=== PATIENT | female | born 1945 | race Caucasian/White ===

== ENCOUNTER → 2017-01-12 | Outpatient (CLI) | payer MEDICARE, OTHER ==
--- NOTE | 2017-01-12 11:30 | ECHOS ---
DATE OF SERVICE: 01/12/2017 AGE: 71Y SEX: F HT: 60 WT: 108lbs. Protocol Lanre: Others: Stage: 2 Dur. of Exercise: 5:00 *Heart Rate Blood Pressure *Rest: 89 Rest: 101/43 * *Max. Achieved: 133 Maximum BP: 164/71 85% PMHR: 128 100% PMHR: 150 *METS: 6.7 INDICATIONS: Chest pain. MEDICATIONS: STRESS DATA: Pretesting physical examination showed heart rate of 89, pressure is 101/43 mmHg. Baseline EKG showed sinus rhythm. The patient exercised on treadmill according to Lanre protocol for a total of 5 minutes and achieved 6.7 METs. Max heart rate was 132, which is about 88% of the proximal predicted heart rate. Maximum blood pressure was 164/71 mmHg. Clinically, the patient did not have any symptoms. The EKG showed about [address] segment depression in the inferolateral leads likely represents a worsening baseline EKG changes. ECHOCARDIOGRAM IMAGES: Echocardiogram images from parasternal long axis, short axis, apical 4 chambers and apical 2 chamber were obtained as the baseline images, at the peak of the heart rate, as well as on recovery and the echocardiogram images showed no wall motion abnormalities consistent with ischemia. CONCLUSION: 1. Average exercise capacity. 2. Mild EKG changes in response to exercise likely represents the worsening of the baseline EKG changes in which the patient has baseline left bundle branch block. 3. Normal echocardiogram in response to exercise without any obvious wall abnormalities consistent with ischemia.
--- NOTE | 2017-01-20 15:28 | ECHOF ---
Referral Reason:I10 htn MEASUREMENTS -------- HEIGHT: 152.4 cm WEIGHT: 49.0 kg BP: IVSd: 0.9 cm (0.6 - 1.1) LVIDd: 3.6 cm (3.9 - 5.3) LVPWd: 1.0 cm (0.6 - 1.1) IVSs: 1.1 cm LVIDs: 2.8 cm LVPWs: 1.3 cm LA Diam: 2.2 cm (2.7 - 3.8) LAESV Index (A-L): 14.47 ml/m Ao Diam: 3.1 cm (2.0 - 3.7) AV Cusp: 1.5 cm (1.5 - 2.6) LA Diam: 2.7 cm (2.7 - 3.8) MV EXCURSION: 14.946 mm (> 18.000) MV EF SLOPE: 90 mm/s (70 - 150) EPSS: 1.0 cm MV E Ramos: 0.76 m/s MV DecT: 274 ms MV A Ramos: 0.97 m/s MV E/A Ratio: 0.78 RAP: 5.00 mmHg RVSP: 32.48 mmHg FINDINGS -------- Undetermined rhythm. This was a technically adequate study. Left ventricular wall thickness is normal. Overall left ventricular systolic function is mildly impaired with, an EF between 45 - 50 %. Anterseptal Hypokinesis The right ventricle is normal in size. The left atrial size is normal. The right atrial size is normal. There is no evidence of aortic regurgitation. Mild mitral annular calcification present. Mild mitral regurgitation is present. Mild tricuspid regurgitation present. There is no evidence of pulmonary hypertension. The right ventricular systolic pressure, as measured by Doppler, is 32.48mmHg. Trace/mild (physiologic) pulmonic regurgitation. The aortic root size is normal. There is no pericardial effusion. CONCLUSIONS -------- 1. Left ventricular wall thickness is normal. 2. Overall left ventricular systolic function is mildly impaired with, an EF between 45 - 50 %. 3. Anterseptal Hypokinesis 4. Mild mitral annular calcification present. 5. Mild mitral regurgitation is present. 6. Mild tricuspid regurgitation present. 7. There is no evidence of pulmonary hypertension. 8. The right ventricular systolic pressure, as measured by Doppler, is 32.48mmHg. 9. Trace/mild (physiologic) pulmonic regurgitation. DAIRY FEED MIXING OPERATOR: Janneth Combs RDCS
== END | disposition home or self-care (01) ==
LOC: RADNMMAIN 09:51
PROVIDERS: ATTEND Internal Medicine Interventional Cardiology
DX: Z01.810 Encounter for preprocedural cardiovascular examination (principal); I10 Essential (primary) hypertension
CPT/HCPCS: 93017; 93306; 93350

== ENCOUNTER → 2018-07-06 | Outpatient (CLI) | payer MEDICARE, OTHER | END | disposition home or self-care (01) | LOC: LABWHC1 09:16 | PROVIDERS: ATTEND Nurse Practitioner Adult Health | DX: I65.22 Occlusion and stenosis of left carotid artery (principal) | CPT/HCPCS: 36415; 82565; 84520 ==

== ENCOUNTER → 2018-07-11 | Outpatient (CLI) | payer MEDICARE, OTHER ==
--- NOTE | 2018-07-12 08:38 | CT ---
EXAMINATION TYPE: CT angio neck DATE OF EXAM: 07/11/2018 HISTORY: Abnormal doppler. Left-sided carotid stenosis. COMPARISON: NONE CT DLP: 310 mGycm. Automated Exposure Control for Dose Reduction was Utilized. TECHNIQUE: CTA scan of the neck is performed with IV Contrast, patient injected with 65 mL of Isovue 370, axial images are obtained, coronal and sagittal reformatted images are reviewed. Three-D recons tructed images are created on an independent workstation and reviewed. FINDINGS: Carotid/Vascular Structures: Mild to moderate mixed plaque in the aortic arch is identified. There is normal 3 vessel origin from the aortic arch. Bilateral subclavian arteries show mild calcified plaqu e on the right. No significant stenosis is present bilaterally. The right common carotid artery shows normal origin from the right brachiocephalic artery. Mild peripheral plaque is seen in the right bra chiocephalic artery. There is fairly severe calcified plaque in right carotid bulb extending into pro ximal internal carotid artery. Lumen diameter is narrowed to 2.1 mm and reexpands to 4.5 mm. Diameter narrowing calculated at 54% near raw data image 268. There is slight bilobed configuration and area of narrowing is under 50%. Remainder of internal carotid artery shows mild calcified plaque supraclin oid segment without significant stenosis. There is patent external carotid artery without significant plaque or stenosis. There is mild to minimal calcified plaque in the proximal left common carotid artery. There is more p rominent focal calcified plaque in the proximal left internal carotid artery shortly after its origin . Lumen diameter is narrowed to 1.3 mm near raw data images 264 through 270 and reconstitutes up to 3 .6 mm superior to this. Computer calculates diameter narrowing 63% and 56% area narrowing. Remainder of internal carotid artery shows tortuous course with mild calcified plaque supraclinoid segment. No significant stenosis is present. There is patent left external carotid artery without significant jany que or stenosis. There is codominant vertebrobasilar system. Vertebral arteries are patent to basilar junction.121 Other: There is moderate to severe disc space narrowing with moderate spurring C6-C7 level. There is mild to moderate disc space narrowing with moderate spurring C5-C6 level. There is underlying emphysematous change with moderate to severe biapical pleural/parenchymal scarrin g. IMPRESSION: Atherosclerotic change bilaterally worse on the left with stenosis narrowed to 63% diamet er and 56% area on computer analysis. No greater than 70% narrowing identified.
== END | disposition home or self-care (01) ==
LOC: RADCTMAIN 16:44
PROVIDERS: ATTEND Internal Medicine Interventional Cardiology
DX: I65.22 Occlusion and stenosis of left carotid artery (principal)
CPT/HCPCS: 70498; Q9967

== ENCOUNTER → 2018-09-19 | Outpatient (CLI) | payer MEDICARE, OTHER ==
--- NOTE | 2018-09-19 08:49 | CT ---
EXAMINATION TYPE: CT chest wo con DATE OF EXAM: 09/19/2018 COMPARISON: NONE HISTORY: Hx open heart. Pt c/o SOB, fatigue. Pleural thickening. CT DLP: 319 mGycm. Automated Exposure Control for Dose Reduction was Utilized. TECHNIQUE: CT scan of the thorax is performed without IV contrast. FINDINGS: LUNGS: There are severe emphysematous changes throughout the lungs predominating at the lung apices. Biapical pleural-parenchymal thickening is also noted as seen on the CT angiogram dated 07/11/2018. Ad ditionally there is a 2 mm focus of pleural thickening along the interlobar fissure on image 34. Ther e is no focal consolidation, pneumothorax or pleural effusion. Right middle lobe strand-like atelecta sis is seen. No pulmonary sizable pulmonary nodule or mass is appreciated. MEDIASTINUM: Lack of IV contrast is noted to limit evaluation for mediastinal and especially hilar ad enopathy. There are no definitive greater than 1 cm hilar or mediastinal lymph nodes. There are multi ple prominent lymph nodes in the mediastinum is seen and coronal image 37 measuring up to 9 mm and on coronal image 39 measuring up to 1.0 cm. No axillary adenopathy. Evaluation for hilar adenopathy is limited without contrast. Ascending thoracic aorta is within normal limits measuring 3.3 cm. Post CAB G changes are noted. No cardiomegaly or pericardial effusion. OTHER: There is tortuosity of the descending thoracic aorta. On the most inferior image (67) there is severe atherosclerosis and questionable intimal flap that could relate to chronic dissection. Altern atively this could represent volume averaging. IMPRESSION: 1. Severe emphysematous change with biapical pleural-parenchymal thickening. No suspicious pulmonary mass. 2. Mediastinal lymph nodes are upper limits of normal in size, possibly reactive. 3. Severe atherosclerosis and tortuosity of the descending thoracic aorta is seen with possible intim al flap of chronic dissection versus volume averaging from the severe atherosclerosis one slice above . CT abdomen with contrast could further assess this questionable finding.
== END | disposition home or self-care (01) ==
LOC: RADCTMAIN 07:27
PROVIDERS: ATTEND Family Medicine
DX: J92.9 Pleural plaque without asbestos (principal); J43.9 Emphysema, unspecified; I70.0 Atherosclerosis of aorta; Z87.891 Personal history of nicotine dependence
CPT/HCPCS: 71250

== ENCOUNTER → 2018-10-04 | Outpatient (CLI) | payer MEDICARE, OTHER ==
--- NOTE | 2018-10-04 08:56 | CT ---
EXAMINATION TYPE: CT angio abdomen DATE OF EXAM: 10/04/2018 HISTORY: Prior abnormal CAT scan, possible dissection. CT DLP: 942mGycm Automated Exposure Control for Dose Reduction was Utilized. CONTRAST: CTA scan of the abdomen and pelvis is performed without oral and without and with IV Contrast, patien t injected with 100 mL of Isovue 370. Three-D reconstructed images are created on independent worksta tion COMPARISON: CT chest September 19, 2018 FINDINGS: VASCULAR: There is fairly moderate to severe eccentric calcified plaque in the infrarenal abdominal a koby extending into the iliac arterial branch vessels in the pelvis. Corresponding to area of CT conc eric is focal ectasia of the infrarenal abdominal aorta which measures up to 1.8 cm transversely axial image 33. No linear hypodensity persists above 1 axial image to suggest clinically significant disse ction. No significant stenosis is seen in aorta or common iliac arteries bilaterally. Significant anaya nosis is felt present in the right internal iliac artery. Severely calcified plaque bilateral externa l iliac arteries is present, cannot exclude stenosis greater than 50% in either artery. No aneurysm i s evident. LUNG BASES: Right medial basilar scarring and/or atelectasis is redemonstrated. Surgical clip anterio r to pericardium is noted. LIVER/GB: No significant abnormality is appreciated. PANCREAS: No significant abnormality is seen. SPLEEN: No significant abnormality is seen. ADRENALS: No significant abnormality is seen. KIDNEYS: No significant abnormality is seen. BOWEL: No significant abnormality is seen. UTERUS/ADNEXA: No gross abnormality seen. LYMPH NODES: No greater than 1cm abdominal or pelvic lymph nodes are appreciated. OSSEOUS STRUCTURES: There is dextroconvex scoliosis centered in the upper lumbar spine. There is mult ilevel spurring and disc space narrowing throughout the lumbar spine. Moderate degenerative change ri ght hip joint with narrowing and spurring is present. OTHER: No significant additional abnormality is seen. IMPRESSION: No focal dissection or aneurysm. Fairly severe diffuse calcified plaque infrarenal abdomi nal aorta extending into iliac arterial branch vessels is noted.
== END | disposition home or self-care (01) ==
LOC: RADCTMAIN 06:56
PROVIDERS: ATTEND Family Medicine
DX: I70.0 Atherosclerosis of aorta (principal); I70.8 Atherosclerosis of other arteries
CPT/HCPCS: 82565; 84520; 74175; 36415; Q9967

== ENCOUNTER → 2018-12-06 | Outpatient (CLI) | payer MEDICARE, OTHER ==
--- NOTE | 2018-12-13 16:50 | MM ---
Reason for exam: screening (asymptomatic). History: Patient is postmenopausal. MG 3D Screening Mammo W/Cad Bilateral CC and MLO view(s) were taken. No prior studies available for comparison. The breast tissue is extremely dense which could obscure a lesion on mammography. There is an obscured left lower inner quadrant anterior depth mass, seen on 3D cc 2050. There are benign-appearing bilateral calcifications. ASSESSMENT: Incomplete: need additional imaging evaluation, BI-RAD 0 RECOMMENDATION: Special view mammogram of the left breast.
== END | disposition home or self-care (01) ==
LOC: RADMAMWWP 07:16
PROVIDERS: ATTEND Family Medicine
DX: Z12.31 Encounter for screening mammogram for malignant neoplasm of breast (principal)
CPT/HCPCS: 77063; 77067

== ENCOUNTER → 2018-12-15 | Outpatient (CLI) | payer MEDICARE, OTHER ==
--- NOTE | 2018-12-19 17:22 | MM ---
Reason for exam: additional evaluation requested from abnormal screening. Last mammogram was performed less than 1 month ago. History: Patient is postmenopausal. Physical Findings: Nurse did not find any significant physical abnormalities on exam. MG 3D Work Up W/Cad LT Spot compression CC, spot compression MLO, and ML view(s) were taken of the left breast. Prior study comparison: December 06, 2018, bilateral MG 3d screening mammo w/cad. The breast tissue is heterogeneously dense. This may lower the sensitivity of mammography. The previously seen left breast focal asymmetry appears improved on additional views and as fibroglandular tissue. These results were verbally communicated with the patient and result sheet given to the patient on 12/15/18. ASSESSMENT: Negative, BI-RAD 1 RECOMMENDATION: Return to routine screening mammogram schedule for both breasts.
== END | disposition home or self-care (01) ==
LOC: RADMAMWWP 08:54
PROVIDERS: ATTEND Family Medicine
DX: R92.8 Other abnormal and inconclusive findings on diagnostic imaging of breast (principal)
CPT/HCPCS: 77065; G0279; 77061

== ENCOUNTER → 2019-07-21 | Outpatient (CLI) | payer MEDICARE, OTHER ==
--- NOTE | 2019-07-21 09:00 | XR ---
EXAMINATION TYPE: XR cervical spine comp DATE OF EXAM: 07/21/2019 CLINICAL HISTORY: pain COMPARISON: NONE TECHNIQUE: Frontal, lateral, oblique, swimmers, and open mouth view of the cervical spine are obtaine d. FINDINGS: The cervical spine is visualized in its entirety from C1 thru the top of T1 level. It is s atisfactory in alignment without evidence of acute fracture or dislocation. The pre-vertebral soft t issue appears within normal limits. Moderate to severe degenerative disc space narrowing and spondylo sis extending from C5-6 through C6-7. Bilateral foraminal encroachment at C5-6 and C6-7. The C1-C2 ar ticulation is unremarkable on the open mouth view. IMPRESSION: No acute fracture or dislocation is seen in the cervical spine.ICD 10 NO FRACTURE, INITI AL EVALUATION
== END | disposition home or self-care (01) ==
LOC: RADXRMAIN 07:58
PROVIDERS: ATTEND Family Medicine
DX: M54.2 Cervicalgia (principal)
CPT/HCPCS: 72050

== ENCOUNTER → 2019-08-21 | Outpatient (CLI) | payer MEDICARE, OTHER ==
--- NOTE | 2019-08-21 08:09 | MR ---
MRI CERVICAL SPINE: CLINICAL HISTORY: Neck pain per order. Headache with neck pain for one year increasing in severity re cently per patient. TECHNIQUE: Multiplanar, multisequence imaging of the cervical spine is performed without IV contrast. COMPARISON: Cervical spine x-ray July 21, 2019. FINDINGS: Sagittal images of the cervical spine show the craniocervical junction to appear within nor mal limits. The cervical and upper thoracic spinal cord is normal in course, caliber, and signal. V ertebral alignment is anatomic. The vertebral body heights are normal. Mild disc space narrowing wit h moderate anterior spurring C6-C7 level. Moderate anterior spurring C5-C6 level noted. The bone david ow signal intensity is within normal limits. Axial images show C2-C3 level to appear within normal limits. Axial images at C3-C4 level from uncovertebral facet degenerative changes bilaterally causing mild-to -moderate bilateral neural foraminal narrowing. Axial images at C4-C5 level are all within normal limits. Axial images at C5-C6 level showed broad based posterior disc protrusion effacing the anterior thecal sac, bilateral neural foramina are patent. Axial images at C6-C7 level a broad-based posterior disc protrusion effacing anterior thecal sac and causing moderate to severe right and moderate left-sided neural foraminal narrowing. Axial images at C7-T1 level are within normal limits. IMPRESSION: Multilevel degenerative changes in cervical spine most prominent at C6-C7 level as detail ed above.
== END | disposition home or self-care (01) ==
LOC: RADMRIMAIN 06:10
PROVIDERS: ATTEND Psychiatry & Neurology Neurology
DX: M47.812 Spondylosis without myelopathy or radiculopathy, cervical region (principal)
CPT/HCPCS: 72141

== ENCOUNTER → 2019-12-27 | Outpatient (CLI) | payer MEDICARE, OTHER ==
--- NOTE | 2019-12-27 10:17 | CT ---
EXAMINATION TYPE: CT angio neck DATE OF EXAM: 12/27/2019 COMPARISON: 07/11/2018 HISTORY: 74-year-old female Carotid Stenosis TECHNIQUE: Contiguous axial scanning of the neck performed with IV Contrast, patient injected with 10 0 mL of Isovue 370. Coronal/sagittal MIP reconstructions performed. 3-D reconstructions generated on a dedicated independent workstation. CT DLP: 156.2 mGycm Automated exposure control for dose reduction was used. FINDINGS: Moderate to advanced emphysema in the visualized upper lungs with biapical pleural-parenchymal scarri ng. Moderate atherosclerotic changes in the aortic arch with bovine configuration. Arch vessel origins ar e patent with scattered mild atherosclerotic calcifications. The bilateral vertebral artery are patent and codominant. Incidental low takeoff of the right posteri or inferior cerebellar artery just proximal to the V4 segment. The right common carotid artery is patent. Moderate chronic changes at the right bifurcation with mild, less than 40 % proximal ICA narrowing. T he remainder of the right ICA is patent. Left common carotid artery is patent. There is severe, very short segment focal stenosis of the proxi mal left carotid bulb of approximately 80%. The remainder of the left ICA is patent. IMPRESSION: 1. SEVERE, VERY SHORT SEGMENT FOCAL STENOSIS OF APPROXIMATELY 80% AT THE PROXIMAL LEFT CAROTID BULB. 2. MILD, LESS THAN 40 % PROXIMAL ICA STENOSIS ON THE RIGHT. 3. COPD.
== END | disposition home or self-care (01) ==
LOC: RADCTMAIN 06:24
PROVIDERS: ATTEND Nurse Practitioner Adult Health
DX: I65.23 Occlusion and stenosis of bilateral carotid arteries (principal); J44.9 Chronic obstructive pulmonary disease, unspecified; I65.29 Occlusion and stenosis of unspecified carotid artery
CPT/HCPCS: 82565; 84520; 70498; 36415; Q9967

== ENCOUNTER → 2020-01-17 | Outpatient (CLI) | payer MEDICARE, OTHER ==
--- NOTE | 2020-01-17 09:39 | BD ---
EXAMINATION TYPE: Axial Bone Density DATE OF EXAM: 01/17/2020 COMPARISON: NONE CLINICAL HISTORY: Height: 59.5 IN Weight: 108 LBS RISK FACTORS HISTORY OF: History of Wrist Fracture: LEFT WRIST When: APPROX AGE 51 Active: YES Diet low in dairy products/other sources of calcium: YES Postmenopausal woman: AGE 51 Lost more than 2 inches in height since high school: YES 11/30" MEDICATIONS: Thyroid Medications: YES Which medication: Levothyroxine How Lon YEARS Additional Medications: MULTI VIT, LEVOTHYROXINE, LISINOPRIL,STATINS, METOPROLOL,ASPIRIN EXAM MEASUREMENTS: Bone mineral densitometry was performed using the Quibb System. Bone mineral density as measured about the Lumbar spine is: ----- L1-L4(G/cm2): 1.274 T Score Values are as follows: ----- L2: 0.6 ----- L3: 0.1 ----- L4: 0.2 ----- L1-L4: 0.8 Bone mineral density BASELINE Bone mineral density about the R hip (g/cm2): 0.704 Bone mineral density about the L hip (g/cm2): 0.666 T Score values are as follows: -----R Neck: -2.4 -----L Neck: -2.7 -----R Total: -1.7 -----L Total: -1.9 Bone mineral density BASELINE IMPRESSION: Osteoporosis (T Score less than -2.5). There is increased fracture risk and therapy is usually indicated based on age. Re-Screen 1-2 years. NOTE: T-SCORE=SD OF THE YOUNG ADULT MEAN.
--- NOTE | 2020-01-22 10:32 | MM ---
Reason for exam: screening (asymptomatic). Last mammogram was performed 1 year and 1 month ago. History: Patient is postmenopausal. Physical Findings: A clinical breast exam by your physician is recommended on an annual basis and results should be correlated with mammographic findings. MG 3D Screening Mammo W/Cad Bilateral CC and MLO view(s) were taken. Prior study comparison: December 15, 2018, left breast MG 3d work up w/cad LT. December 06, 2018, bilateral MG 3d screening mammo w/cad. The breast tissue is extremely dense which could obscure a lesion on mammography. No significant changes when compared with prior studies. ASSESSMENT: Benign, BI-RAD 2 RECOMMENDATION: Routine screening mammogram of both breasts in 1 year.
== END | disposition home or self-care (01) ==
LOC: RADMAMWWP 06:58
PROVIDERS: ATTEND Family Medicine
DX: Z12.31 Encounter for screening mammogram for malignant neoplasm of breast (principal); M81.0 Age-related osteoporosis without current pathological fracture
CPT/HCPCS: 77063; 77067; 77080

== ENCOUNTER → 2020-02-09 | Outpatient (CLI) | payer MEDICARE, OTHER ==
[2020-02-09 08:21] LABS: HCT 39.8 % (34.0-46.0); MCH 33.9 pg (25.0-35.0); MCHC 32.7 g/dL (31.0-37.0); MCV 103.7 fL (80.0-100.0); Macrocytosis Slight; Mean Platelet Volume 7.3; Platelet Count 341 k/uL (150-450); RBC 3.84 m/uL (3.80-5.40); RDW 13.1 % (11.5-15.5); WBC 6.7 k/uL (3.8-10.6)
[2020-02-09 08:27] LABS: Potassium 5.8 mmol/L (3.5-5.1)
== END | disposition home or self-care (01) ==
LOC: LABPAT 07:22
PROVIDERS: ATTEND Internal Medicine Interventional Cardiology
DX: Z01.818 Encounter for other preprocedural examination (principal); I65.22 Occlusion and stenosis of left carotid artery
CPT/HCPCS: 36415; 80051; 82565; 84520; 85027

== ENCOUNTER 2020-02-19 06:26 | Inpatient (IN) | payer MEDICARE, OTHER ==
[2020-02-14 13:30] VITALS: BMI 21.4
[~2020-02-19 06:26] MED LIST: NITROGLYCERIN SL TABS 0.4 MG TAB SUBLINGUAL PRN; SODIUM CHLORIDE 0.9% 1,000 ML in EMPTY BAG 1 BAG IV ONE
[2020-02-19 06:53] VITALS: TEMP 94.4
[2020-02-19] MEDS ORDERED: ASPIRIN 325 MG TAB PO ONE (07:00)
[2020-02-19] MEDS ORDERED: CLOPIDOGREL 75 MG TAB PO ONE (07:00)
[2020-02-19] MEDS ORDERED: LIDOCAINE 1% INJ 10MG/ML (20 ML MDV) SQ ONE (08:02)
[2020-02-19] MEDS ORDERED: IOPAMIDOL-300 100ML BTL INJ ONE ×2 (08:20)
[2020-02-19] MEDS ORDERED: SODIUM CHLORIDE 0.9% 1,000 ML IV SCH (08:45)
--- NOTE | 2020-02-19 08:45 | P.PCN ---
Date of Procedure: 02/19/20 Operative Findings: AN AORTIC ARCH AND CAROTID ANGIOGRAM Performing physician: Govind Serrano M.D., RPVI Procedure performed: 1. An aortic arch angiogram 2. Selective left carotid angiogram Indication: This is a 74-year-old female patient coronary artery disease and status post CABG, chronic obstructive pulmonary disease, hypertension, dyslipidemia, was diagnosed recently with severe stenosis involving the left internal carotid artery, by CTA was about 80%. She was brought today to undergo an angiogram and possible intervention on the left internal carotid artery Approach: Right common femoral artery Complication: None Level of sedation: Sedation was not performed during the procedure. The procedure length was 21 mi nutes Procedure description: After obtaining an informed consent the patient was brought to the cardiac photographic laboratory technician. The right common femoral artery was cannulated using micropuncture technique, the micropuncture wire passed easily then I placed a 5-Filipino sheath into the right common femoral artery. Subsequently I did an aortic arch angiogram using 5-Filipino pigtail catheter and with poor injection on PANAMANIAN projection. After that I did selective the left common carotid artery using a JB2 catheter. Then I did selective left carotid artery angiogram. The procedure was completed without any complication The aortic arch angiogram: Was performed in the PANAMANIAN projection and using a power injection. Aortic arch is mildly calcified and it seems to be type II aortic arch as well as bovine arch. No occlusive disease seen and no aneurysmal formation seen as well and no evidence of dissection seen as well as. The carotid angiogram: I did perform selective left carotid angiogram using multiple angles including PANAMANIAN projection, DEWITT projection, AP projection, and left lateral projection. I did perform that with manual injection. The left carotid angiogram revealed intermediate to severe disease involving the left carotid bulb appeared to be in the range of 60-70% and not quite about 80% where it does need an intervention. Because of that I decided to stop at that point. The left carotid angiogram was performed without any complication Conclusion: 1. Type II aortic arch and bovine arch at the same time 2. Intermediate to severe disease involving the left carotid bulb, appears to be in the range of 60-70%. Postprocedure management: 1. Aggressive cholesterol control 2. Antiplatelet therapy 3. Continue monitoring by Doppler with or without CTA 4. Follow-up with the patient
--- NOTE | 2020-02-19 09:04 | IR ---
EXAMINATION TYPE: IR angio aortic arch DATE OF EXAM: 02/19/2020 COMPARISON: CT angiotech negative 12/27/2019 HISTORY: Left carotid stenosis TECHNIQUE/FINDINGS: Fluoroscopic guidance was provided during procedure performed by Dr. Serrano. Fluoro scopy time was not submitted. 116 images submitted during angiogram of the aortic arch for left carot id stenosis runoff of the right common iliac artery and its branches was also demonstrated on the sub mitted images. Left carotid bulb and proximal carotid artery stenosis is redemonstrated as seen on th e prior CT of 12/27/2019. IMPRESSION: As above
[2020-02-19 12:44] VITALS: RESP 16
[2020-02-19 13:35] VITALS: BP 141/69; PULSE 68
== END 2020-02-19 14:55 | disposition home or self-care (01) | DRG 68 ==
LOC: 2ORMAIN 06:26
PROVIDERS: ADMIT Internal Medicine Interventional Cardiology; ATTEND Internal Medicine Interventional Cardiology
PROC: B3101ZZ Fluoroscopy of Thoracic Aorta using Low Osmolar Contrast (ICD-10-PCS; 2020-02-19)
PROC: B3141ZZ Fluoroscopy of Left Common Carotid Artery using Low Osmolar Contrast (ICD-10-PCS; principal; 2020-02-19 07:30)
DX: I65.23 Occlusion and stenosis of bilateral carotid arteries (principal); J44.9 Chronic obstructive pulmonary disease, unspecified; I25.10 Atherosclerotic heart disease of native coronary artery without angina pectoris; I10 Essential (primary) hypertension; I73.9 Peripheral vascular disease, unspecified; E78.5 Hyperlipidemia, unspecified; Z87.891 Personal history of nicotine dependence; Z79.82 Long term (current) use of aspirin; Z79.899 Other long term (current) drug therapy; Z95.1 Presence of aortocoronary bypass graft; Z82.49 Family history of ischemic heart disease and other diseases of the circulatory system
CPT/HCPCS: 36223; 84132

== ENCOUNTER → 2020-11-28 | Outpatient (CLI) | payer MEDICARE, OTHER ==
--- NOTE | 2020-11-28 09:32 | MR ---
EXAMINATION TYPE: MR cervical spine wo con DATE OF EXAM: 11/28/2020 COMPARISON: Prior cervical spine MRI 08/21/2019 HISTORY: Neck pain and paresthesia. TECHNIQUE: Multiplanar, multisequence images of the cervical spine were acquired. C2-C3: No evidence for degenerative disc disease. No disc bulge/herniation or protrusion. No Canal stenosis. Foramina are patent bilaterally. C3-C4: No evidence for degenerative disc disease. No disc bulge/herniation or protrusion. No Canal stenosis. Foramina are patent bilaterally.. Facet arthropathy changes. C4-C5: No evidence for degenerative disc disease. No disc bulge/herniation or protrusion. No Canal stenosis. Foramina are patent bilaterally. C5-C6: Posterior extension endplate disc complex causes mild anterior mass effect on the thecal sac. There is some uncovertebral joint hypertrophy but no significant foraminal encroachment. C6-C7: Posterior extension endplate disc complex causes anterior mass effect on the thecal sac, mild spinal stenosis. Bilateral foraminal encroachment due to uncovertebral joint hypertrophy and facet ar thropathy shows a similar appearance. C7-T1: No evidence for degenerative disc disease. No disc bulge/herniation or protrusion. No Canal stenosis. Foramina are patent bilaterally. Cervical segments are intact. There is stable alignment. Cervical spinal cord is of normal signal. Craniovertebral junction relationships are within normal limits. There is multilevel spondylosis wi th endplate discogenic marrow signal change, some loss of disc height signal present C4-5, C5-6 and C 6-7. There is no significant spinal stenosis. IMPRESSION: Stable degenerative disc disease, foraminal encroachment especially at C6-7 with some mild spinal anaya nosis
== END | disposition home or self-care (01) ==
LOC: RADMRIMAIN 08:13
PROVIDERS: ATTEND Family Medicine
DX: M48.02 Spinal stenosis, cervical region (principal); M50.323 Other cervical disc degeneration at C6-C7 level; R20.2 Paresthesia of skin
CPT/HCPCS: 72141

== ENCOUNTER → 2021-02-12 | Outpatient (CLI) | payer MEDICARE, OTHER ==
--- NOTE | 2021-02-12 09:23 | CT ---
EXAMINATION TYPE: CT angio neck DATE OF EXAM: 02/12/2021 HISTORY: Carotid stenosis per order. COMPARISON: CTA neck dated 12/27/2019 and 07/11/2018. CT DLP: 253 mGycm. Automated Exposure Control for Dose Reduction was Utilized. TECHNIQUE: CTA scan of the neck is performed without and with IV Contrast, patient injected with 65 ml mL of Isovue 370, axial images are obtained, coronal and sagittal reformatted images are reviewed. 3D reconstructed images are created on independent workstation and reviewed. FINDINGS: Carotid/Vascular Structures: Normal 3 vessel origin from the aortic arch. Mild to moderate peripheral atherosclerotic change of the origin of the great vessels without significant stenosis. Persistent m oderate peripheral plaque an arch. Right common carotid artery shows normal origin from right brachio cephalic artery. Mild peripheral plaque at origin of right common carotid artery. No significant plaq ue or stenosis in the remainder of the common carotid arteries bilaterally. Persistent moderate to se [place] calcified plaque right carotid bulb extending into the proximal internal carotid artery. There i s new significant stenosis origin of right external carotid artery raw data image 108. No significant stenosis in the right internal carotid artery. Tortuous course proximal to mid segment level. Mild-t o-moderate calcified plaque distally. More mild calcified plaque left carotid bulb redemonstrated. Pe rsistent significant focal stenosis at origin of left internal carotid artery due to focal calcified plaque causing luminal diameter narrowing to 1.4 mm with reconstitution distally to 5.1 mm. Mild/mode rate calcified plaque distally redemonstrated. Patent left external carotid artery without significan t stenosis. Other: Mild to moderate underlying emphysematous change with moderate biapical pleural/parenchymal sc arring. Note is made of developing mediastinal lymph node prominence for reference there is 1.6 x 1.0 cm pericarinal lymph node axial image 79. Follow-up advised. Somewhat small size thyroid redemonstra tim. Post-CABG changes partially imaged. Multilevel disc space narrowing and spurring along with uncovertebral facet degenerative changes in t he cervical spine. IMPRESSION: 1. Persistent severe focal stenosis measuring 70-80% at origin of left internal carotid artery due to focal calcified plaque. No significant interval progression from most recent CTA Neck study. 2. Suspicious more prominent mediastinal lymph nodes on background moderate emphysematous change. Adv ise contrast enhanced chest CT to assess for possible pulmonary nodules.
== END ==
LOC: RADCTMAIN 07:18
PROVIDERS: ATTEND Internal Medicine Interventional Cardiology
DX: I65.22 Occlusion and stenosis of left carotid artery (principal)
CPT/HCPCS: 82565; 84520; 70498; 36415; Q9967

== ENCOUNTER → 2021-03-25 | Outpatient (CLI) | payer MEDICARE, OTHER ==
--- NOTE | 2021-03-25 08:47 | CT ---
EXAMINATION TYPE: CT chest w con DATE OF EXAM: 03/25/2021 COMPARISON: 09/19/2018 HISTORY: Mediastinal Lymphadenopathy CT DLP: 306 mGycm Automated exposure control for dose reduction was used. CONTRAST: CT scan of the chest is performed with IV Contrast, patient injected with 100 mL of Isovue 300. FINDINGS: LUNGS: Upper lobe parenchymal scarring noted. Emphysematous changes seen. No suspicious pulmonary nod ule or mass. No infiltrate or volume loss. MEDIASTINUM: 1.1 cm precarinal lymph node is unchanged from prior study. No additional lymph nodes gr eater than 1 cm identified at this time. No pericardial effusion is seen. Thoracic aorta is of zack l caliber. The heart is not enlarged. UPPER ABDOMEN: No significant abnormality appreciated. OTHER: No additional significant abnormality is seen. IMPRESSION: 1. Stable mildly enlarged lymph node precarinal mediastinum. 2. Upper lobe parenchymal scarring and emphysematous change.
== END | disposition home or self-care (01) ==
LOC: RADCTMAIN 06:40
PROVIDERS: ATTEND Family Medicine
DX: R59.0 Localized enlarged lymph nodes (principal); J43.9 Emphysema, unspecified
CPT/HCPCS: 82565; 84520; 71260; 36415; Q9967

== ENCOUNTER → 2021-07-02 | Outpatient (CLI) | payer MEDICARE, OTHER ==
--- NOTE | 2021-07-07 12:36 | MM ---
Reason for exam: screening (asymptomatic). Last mammogram was performed 1 year and 5 months ago. History: Patient is postmenopausal. Physical Findings: A clinical breast exam by your physician is recommended on an annual basis and results should be correlated with mammographic findings. MG 3D Screening Mammo W/Cad Bilateral CC and MLO view(s) were taken. Prior study comparison: January 17, 2020, bilateral MG 3d screening mammo w/cad. December 06, 2018, bilateral MG 3d screening mammo w/cad. The breast tissue is heterogeneously dense. This may lower the sensitivity of mammography. Finding: There are typically benign vascular calcifications in both breasts. No significant changes in finding since January 17, 2020 and December 06, 2018. ASSESSMENT: Benign, BI-RAD 2 RECOMMENDATION: Routine screening mammogram of both breasts in 1 year.
== END | disposition home or self-care (01) ==
LOC: RADMAMWWP 07:49
PROVIDERS: ATTEND Family Medicine
DX: Z12.31 Encounter for screening mammogram for malignant neoplasm of breast (principal); Z78.0 Asymptomatic menopausal state
CPT/HCPCS: 77063; 77067

== ENCOUNTER → 2021-07-28 | Outpatient (CLI) | payer MEDICARE, OTHER | END | disposition home or self-care (01) | LOC: LABWHC1 09:59 | PROVIDERS: ATTEND Family Medicine | DX: U07.1 COVID-19 (principal) | CPT/HCPCS: U0003; C9803 ==

== ENCOUNTER → 2021-08-12 | Outpatient (CLI) | payer MEDICARE, OTHER ==
--- NOTE | 2021-08-12 12:37 | US ---
EXAMINATION TYPE: US kidneys/renal and bladder DATE OF EXAM: 08/12/2021 COMPARISON: NONE CLINICAL HISTORY: 76-year-old female R35.0 URINARY FREQ. Increased urination at night EXAM MEASUREMENTS: Right Kidney: 8.2 x 3.9 x 3.5 cm Left Kidney: 8.2 x 3.7 x 5.0 cm Right Kidney: small in size, no hydronephrosis or masses seen Left Kidney: small in size, no hydronephrosis or masses seen Bladder: Under distention limits evaluation. IMPRESSION: Small size of the kidneys suggests chronic medical renal disease. No hydronephrosis.
== END | disposition home or self-care (01) ==
LOC: RADUSWWP 07:00
PROVIDERS: ATTEND Family Medicine
DX: N27.9 Small kidney, unspecified (principal)
CPT/HCPCS: 76770

== ENCOUNTER 2021-09-04 07:15 | Day surgery (SDC) | payer MEDICARE, OTHER ==
[2021-09-02 11:00] VITALS: BMI 21.1
[~2021-09-04 07:15] MED LIST changes: +LACTATED RINGERS 1,000 ML IV SCH; -NITROGLYCERIN SL TABS 0.4 MG TAB SUBLINGUAL PRN; -SODIUM CHLORIDE 0.9% 1,000 ML in EMPTY BAG 1 BAG IV ONE
[2021-09-04 07:53] VITALS: TEMP 97.1
[2021-09-04] MEDS ORDERED: LIDOCAINE 1% (10MG/ML) FOR IV START INTRADERMA ONE (07:58)
[2021-09-04] MEDS ORDERED: PROPOFOL 10 MG/ML 20 ML VIAL IV ONE (08:28)
[2021-09-04] MEDS ORDERED: LIDOCAINE 1% INJ 10MG/ML (20 ML MDV) ONE (08:28)
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
--- NOTE | 2021-09-04 08:44 | P.OP ---
Date of Procedure: 09/04/21 Preoperative Diagnosis: GI bleed Postoperative Diagnosis: Normal colonoscopy left colon, barium enema pending Procedure(s) Performed: Colonoscopy Anesthesia: MAC Surgeon: Macario Garcia Pathology: none sent Condition: stable Disposition: PACU Description of Procedure: The patient's placed on the endoscopy table in the lateral position. She received IV sedation. Digital rectal exam performed no active. Flexible colonoscope was then placed patient anus passed throughout the colon. The scope could not be passed beyond the left colon secondary to tortuosity valve. There was a few scattered diverticula. Scope was withdrawn. The sigmoid colon had a few diverticula. Scope was brought back the rectum was normal. Scope was withdrawn for patient. Patient was scheduled for a barium enema.
[2021-09-04 08:48] VITALS: RESP 16
[2021-09-04 09:12] VITALS: BP 120/70; PULSE 64
--- NOTE | 2021-09-04 15:16 | FL ---
EXAMINATION TYPE: FL barium enema w air contrast DATE OF EXAM: 09/04/2021 COMPARISON: CTA of the abdomen October 04, 2018 HISTORY: Incomplete routine colonoscopy TECHNIQUE: A double contrast barium enema study is performed. A total of 1 minute 39 seconds of flu oroscopic time was utilized during procedure and 20 images obtained. FINDINGS: Circular Head Saw Operator view of the abdomen shows overall non-obstructive bowel gas pattern. There is underl gabriella scoliosis with multilevel spurring and disc space narrowing in the thoracolumbar spine redemonst rated. Arterial vascular calcification in the iliac arteries bilaterally is redemonstrated. Enema study is performed there are successful filling to the cecum. Some internal fecal debris is reena ntified limiting evaluation for small polyps. No obstructing or constricting lesion. No significant diverticular disease is noted. No obvious suspicious polyp. Occasional spasm at level of sigmoid colo n Appendix was filled and appeared normal. The terminal ileum was not refluxed. IMPRESSION: Successful filling to the cecum without suspicious mass or large polyp.
== END 2021-09-04 10:30 | disposition home or self-care (01) ==
LOC: ORWHC2ENDO 07:15
PROVIDERS: ATTEND Surgery
DX: Q43.8 Other specified congenital malformations of intestine (principal); K57.31 Diverticulosis of large intestine without perforation or abscess with bleeding; I25.10 Atherosclerotic heart disease of native coronary artery without angina pectoris; E78.5 Hyperlipidemia, unspecified; I25.2 Old myocardial infarction; M19.90 Unspecified osteoarthritis, unspecified site; E07.9 Disorder of thyroid, unspecified; Z86.16 Personal history of COVID-19; J43.9 Emphysema, unspecified; Z86.19 Personal history of other infectious and parasitic diseases; Q63.8 Other specified congenital malformations of kidney; Z95.1 Presence of aortocoronary bypass graft; Z98.890 Other specified postprocedural states; Z98.42 Cataract extraction status, left eye; Z98.41 Cataract extraction status, right eye; Z80.9 Family history of malignant neoplasm, unspecified; Z79.82 Long term (current) use of aspirin; Z79.890 Hormone replacement therapy; Z79.899 Other long term (current) drug therapy; Z91.040 Latex allergy status
CPT/HCPCS: 74280; J2001; J2704; G0121

== ENCOUNTER → 2022-01-29 | Outpatient (CLI) | payer MEDICARE, OTHER ==
--- NOTE | 2022-01-29 07:59 | US ---
EXAMINATION TYPE: US thyroid st tissue head/neck DATE OF EXAM: 01/29/2022 COMPARISON: NONE CLINICAL HISTORY: R79.89 ABN THYROID BLOOD TEST. Abnormal labs. On thyroid meds. GLAND SIZE: Right Lobe: 2.5 x 1.1 x 0.8 cm Overall Parenchyma: heterogenous Left Lobe: 2.1 x 0.7 x 0.8 cm Overall Parenchyma: heterogeneous Isthmus Thickness: 0.1 cm NODULES RIGHT: # of nodules measured on right: 0 LEFT: # of nodules measured on left: 0 ISTHMUS: # of nodules measured in the isthmus: 0 Bilateral neck scanned, no evidence of lymphadenopathy. IMPRESSION: 1. Unremarkable thyroid ultrasound.
== END | disposition home or self-care (01) ==
LOC: RADUSWWP 07:14
PROVIDERS: ATTEND Family Medicine
DX: R79.89 Other specified abnormal findings of blood chemistry (principal)
CPT/HCPCS: 76536

== ENCOUNTER 2022-02-28 15:52 | Emergency (ER) | payer MEDICARE, OTHER ==
[2022-02-28 16:03] VITALS: BP 158/79; PULSE 100; RESP 18
[2022-02-28] MEDS ORDERED: ONDANSETRON 4 MG/2 ML VIAL IVP STA (16:14)
[2022-02-28] MEDS ORDERED: SODIUM CHLORIDE 0.9% 1,000 ML IV STA (16:14)
[2022-02-28] MEDS ORDERED: GLUCAGON 1 MG/ML VIAL IVP STA (16:14)
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
== END 2022-02-28 17:36 | disposition other institution (70) ==
LOC: EC 15:52
DX: T18.128A Food in esophagus causing other injury, initial encounter (principal); I10 Essential (primary) hypertension; J43.9 Emphysema, unspecified; I25.2 Old myocardial infarction; I25.10 Atherosclerotic heart disease of native coronary artery without angina pectoris; E78.5 Hyperlipidemia, unspecified; M19.90 Unspecified osteoarthritis, unspecified site; Z79.82 Long term (current) use of aspirin; Z79.890 Hormone replacement therapy; Z79.899 Other long term (current) drug therapy; X58.XXXA Exposure to other specified factors, initial encounter
CPT/HCPCS: 99284; 96374; 96375; J1610; J2405

== ENCOUNTER → 2022-05-21 | Outpatient (CLI) | payer MEDICARE, OTHER ==
--- NOTE | 2022-05-21 20:22 | XR ---
EXAMINATION TYPE: XR lumbosacral spine min 4V DATE OF EXAM: 05/21/2022 COMPARISON: CT dated 10/04/2018 INDICATION: Back pain TECHNIQUE: 5 views of the lumbar spine FINDINGS: Dextroscoliosis of the upper lumbar spine. Retrolisthesis of L1 over L2. Mild retrolisthesis of L3 ov er L4. No definite vertebral body collapse or acute displaced fracture however a subtle nondisplaced fracture cannot be excluded. Advanced degenerative changes of the lumbar spine with multilevel opposing endplate osteophytosis. De generated discs most evident at L1-2 disc. Subchondral sclerotic changes at L1-2 level. Multilevel fa cet osteoarthropathy is noted. Arterial atherosclerotic calcifications. IMPRESSION: Advanced degenerative changes and other findings as described above. Further MRI assessment can be co nsidered.
== END | disposition home or self-care (01) ==
LOC: RADXRMAIN 08:00
PROVIDERS: ATTEND Family Medicine
DX: M47.816 Spondylosis without myelopathy or radiculopathy, lumbar region (principal); M51.26 Other intervertebral disc displacement, lumbar region
CPT/HCPCS: 72110

== ENCOUNTER → 2022-05-25 | Outpatient (CLI) | payer MEDICARE, OTHER ==
--- NOTE | 2022-05-27 09:02 | NM ---
EXAMINATION TYPE: NM bone scan whole body DATE OF EXAM: 05/25/2022 COMPARISON: 05/21/2022 lumbar spine x-ray HISTORY: Low back pain Delayed whole-body scanning was performed following the injection of 23.6 mCi Tc 99m MDP. Images wer e acquired 3 hours post injection. FINDINGS: There is a scoliosis of the lumbar spine. There is focal radiotracer within the posterior right T11 a nd T12 levels and posterior left L1 and L2 levels. Some increased uptake may be near the midline isreal on of L3-L4 and some left posterior uptake in the region of the L5. The findings are nonspecific but can be related to degenerative change. Additional areas suspicious for change are within the left wrist, left carpal metacarpal junction in the first digits of the bilateral feet. Small focus of radiotracer is in the region of the left schwarz la. There is some uptake under the left orbit. IMPRESSION: 1. Scoliosis and small foci of uptake within the thoracolumbar spine more likely related to degenerat delbert change. 2. Additional appendicular joint space changes compatible with degenerative change.
== END | disposition home or self-care (01) ==
LOC: RADNMMAIN 10:31
PROVIDERS: ATTEND Family Medicine
DX: M41.35 Thoracogenic scoliosis, thoracolumbar region (principal)
CPT/HCPCS: 78306; A9503

== ENCOUNTER → 2022-06-23 | Outpatient (CLI) | payer MEDICARE, OTHER ==
[2022-06-23 10:50] LABS: African American GFR (CKD) >90 (>60 ml/min/1.73 sqM); Blood Urea Nitrogen 23 mg/dL (7-17); Non-African American GFR(CKD) 84 (>60 ml/min/1.73 sqM)
--- NOTE | 2022-06-23 12:06 | CT ---
EXAMINATION TYPE: CT angio neck CT DLP: 138.7 mGycm, Automated exposure control for dose reduction was used. DATE OF EXAM: 06/23/2022 11:25 AM COMPARISON: CT neck 02/12/2021. CLINICAL INDICATION:Female, 77 years old with history of I65.29 stenosis carotid artery; Carotid Sten osis TECHNIQUE: Axially acquired helical CT angiogram of the neck was obtained with contrast utilizing 100 cc of Isovue-370 administered intravenously. Axial images are supplemented with 3D reconstructions w hich were post-processed at an independent workstation. NASCET criteria used. FINDINGS: CTA NECK: Right Carotid System: The common carotid artery and external carotid artery are patent. Mild peripheral plaque at origin th e right common carotid artery. Persistent moderate to severe calcified plaque of the right carotid bu lb extending into the proximal internal carotid artery. Unchanged significant stenosis origin of the right external carotid artery. Less than 50% stenosis at the origin of the right internal carotid art lizzy. Tortuous course proximal to the mid segmental level. Mild to moderate calcified plaque distally. Left Carotid System: The common carotid artery and external carotid artery are patent. Mild calcified plaque of the left c arotid bulb redemonstrated. Persistent significant focal stenosis at the origin of the left internal carotid artery due to focal calcified plaque causing luminal narrowing to 1.3 mm with reconstitution distally to 5 mm. Mild/moderate calcified plaque distally redemonstrated. Patent left external caroti d artery without significant stenosis. Vertebral arteries are patent without evidence hemodynamically significant stenosis. The left vertebr al artery is dominant. There is a three-vessel aortic arch. The origins of the great vessels are patent. Mild to moderate pe ripheral atelectatic change of the origin of the great vessels without significant stenosis. Persiste nt moderate peripheral plaque on arch. Median sternotomy wires partially visualized. Biapical scarring with moderate centrilobular emphysema tous changes. Multilevel degenerative changes of the visualized cervical spine with facet arthropathy . Unchanged 1.4 cm enlarged pericarinal lymph node. IMPRESSION: 1. No significant change in severe focal stenosis measuring 70-80% at the origin of the left internal carotid artery due to focal calcified plaque. 2. Unchanged stenosis at the origin of the right internal carotid artery measuring less than 50%. 2. Unchanged enlarged precarinal lymph node. 3. Moderate emphysematous changes noted.
== END | disposition home or self-care (01) ==
LOC: RADCTMAIN 09:50
PROVIDERS: ATTEND Internal Medicine Interventional Cardiology
DX: I65.23 Occlusion and stenosis of bilateral carotid arteries (principal); J43.9 Emphysema, unspecified
CPT/HCPCS: 82565; 84520; 70498; 36415; Q9967

== ENCOUNTER → 2022-11-10 | Outpatient (CLI) | payer MEDICARE, OTHER ==
--- NOTE | 2022-11-10 08:54 | XR ---
EXAMINATION TYPE: XR KUB DATE OF EXAM: 11/10/2022 8:47 AM CLINICAL HISTORY: Renal calculus. TECHNIQUE: Single supine KUB image of the abdomen is obtained. COMPARISON: CT 2018. FINDINGS: No definite nephrolithiasis. Some limitation due to overlying colonic fecal debris. Overall nonobstructive bowel gas pattern. Dextroconvex scoliosis centered at thoracolumbar junction r edemonstrated. Multilevel moderate to severe spurring and disc space narrowing redemonstrated. Modera te narrowing of both hip joints. Moderate vascular calcification overlies the pelvis. Visualized lung bases are clear. IMPRESSION: As above. Overall nonobstructive bowel gas pattern.
== END | disposition home or self-care (01) ==
LOC: RADXRMAIN 08:32
PROVIDERS: ATTEND Urology
DX: N20.0 Calculus of kidney (principal)
CPT/HCPCS: 74018

== ENCOUNTER → 2023-05-21 | Outpatient (CLI) | payer MEDICARE, OTHER ==
[2023-05-21 09:07] LABS: African American GFR (CKD) >90 (>60 ml/min/1.73 sqM); Blood Urea Nitrogen 19 mg/dL (7-17); Non-African American GFR(CKD) 84 (>60 ml/min/1.73 sqM)
--- NOTE | 2023-05-21 10:54 | CT ---
EXAMINATION TYPE: CT angio neck DATE OF EXAM: 05/21/2023 COMPARISON: 06/23/2022 HISTORY: 78-year-old female I65.23, Carotid stenosis. TECHNIQUE: Contiguous axial scanning of the neck performed with IV Contrast, patient injected with 65 ml mL of Isovue 370. Coronal/sagittal MIP reconstructions performed. CT DLP: 190.6 mGycm Automated exposure control for dose reduction was used. FINDINGS: Median sternotomy wires. Mild atherosclerotic arch calcifications. Bovine configuration to the thorac ic aorta. Emphysematous change and biapical pleuroparenchymal scarring in the visualized upper lungs. Unchanged mildly enlarged 1.2 cm precarinal lymph node. The vertebral arteries are codominant and patent throughout their course. Incidental hypoplastic A1 s egment left anterior cerebral artery. The right common carotid artery is patent. Moderate atherosclerotic calcifications at the right carotid bifurcation contributing to a mild, 30% proximal right ICA stenosis by NASCET criteria. Remainder of the right ICA is patent. The left common carotid artery is patent. Atherosclerotic plaque and calcification contributing to a severe, 80% proximal left ICA stenosis. Moderate spondylotic change mid to lower cervical spine. IMPRESSION: 1. SIMILAR SEVERE, 80% PROXIMAL LEFT ICA STENOSIS. 2. SIMILAR MILD, 30% PROXIMAL RIGHT ICA STENOSIS. 3. BOVINE CONFIGURATION TO THE AORTIC ARCH. 4. UNCHANGED MILDLY ENLARGED 1.2 CM PRECARINAL LYMPH NODE. COPD.
== END | disposition home or self-care (01) ==
LOC: RADCTMAIN 08:24
PROVIDERS: ATTEND Internal Medicine Interventional Cardiology
DX: I65.23 Occlusion and stenosis of bilateral carotid arteries (principal); J44.9 Chronic obstructive pulmonary disease, unspecified; R59.9 Enlarged lymph nodes, unspecified; Q25.49 Other congenital malformations of aorta
CPT/HCPCS: 82565; 84520; 70498; 36415; Q9967

== ENCOUNTER → 2024-02-21 | Outpatient (CLI) | payer MEDICARE, OTHER ==
--- NOTE | 2024-02-21 14:36 | US ---
EXAMINATION TYPE: US kidneys/renal and bladder DATE OF EXAM: 02/21/2024 COMPARISON: NONE CLINICAL INDICATION: Female, 78 years old with history of R30.0 DYSURIA; uti EXAM MEASUREMENTS: Right Kidney: 8.7 x 3.2 x 3.6 cm Left Kidney: 6.7 x 4.2 x 5.0 cm Right Kidney: No hydronephrosis or masses seen Left Kidney: No hydronephrosis or masses seen atrophic Bladder: Anechoic Bilateral Jets seen: no IMPRESSION: 1. Unremarkable renal ultrasound
== END | disposition home or self-care (01) ==
LOC: RADUSWWP 11:05
PROVIDERS: ATTEND Family Medicine
DX: R30.0 Dysuria (principal); Z87.440 Personal history of urinary (tract) infections
CPT/HCPCS: 76770

== ENCOUNTER → 2024-05-02 | Outpatient (CLI) | payer MEDICARE, OTHER ==
--- NOTE | 2024-05-02 09:47 | CT ---
EXAMINATION TYPE: CT abdomen pelvis wo con CT DLP: 228.0 mGycm, Automated exposure control for dose reduction was used. DATE OF EXAM: 05/02/2024 8:35 AM COMPARISON: 10/04/2018 CLINICAL INDICATION:Female, 79 years old with history of R10.9 R flank pain; RT flank pain TECHNIQUE: Axial CT abdomen pelvis wo con;Sagittal and coronal reformats were created on a separate workstation. Contrast used: mL of , (none if empty) Oral contrast used: without Oral Contrast (none if empty) FINDINGS: LOWER CHEST: Unremarkable ABDOMEN LIVER: Unremarkable GALLBLADDER AND BILE DUCTS: Unremarkable. PANCREAS: Unremarkable. SPLEEN: Unremarkable. ADRENAL GLANDS: Unremarkable. KIDNEYS AND URETERS: No evidence of hydronephrosis or renal calculus. The ureters are unremarkable. PELVIS BLADDER: Unremarkable REPRODUCTIVE: Unremarkable. ABDOMEN & PELVIS STOMACH AND BOWEL: No evidence of bowel obstruction. The appendix is normal. Large amount of stool is seen in the right colon. PERITONEUM/RETROPERITONEUM: No evidence of pneumoperitoneum or free fluid. VASCULATURE: No evidence of aortic aneurysm. [id number] consultations of the abdominal aorta. MUSCULOSKELETAL: No acute osseous abnormalities severe degeneration changes with scoliosis of the spi ne. LYMPH NODES: No gross evidence for lymphadenopathy. SOFT TISSUE/ABDOMINAL WALL: Unremarkable IMPRESSION: 1. No evidence for acute right abdominal process to expand patient's pain. 2. Large amount of stool in the colon right greater than left. 3. No evidence for obstructive uropathy or calculus. 4. The appendix is normal
== END | disposition home or self-care (01) ==
LOC: RADCTMAIN 07:58
PROVIDERS: ATTEND Family Medicine
DX: R10.9 Unspecified abdominal pain (principal)
CPT/HCPCS: 74176